=== PATIENT | female | born 1960 | race Caucasian/White ===

== ENCOUNTER 2024-01-26 18:41 | Emergency (ER) | payer BC ==
[~2024-01-26] VITALS: Ht 165.1 cm; Wt 64.0 kg
[2024-01-26 19:15] VITALS: BP 138/94; PULSE 83; RESP 18; TEMP 98.8; O2SAT 94
[2024-01-26 19:44] VITALS: BP 160/62; PULSE 82; RESP 18; TEMP 98.8; O2SAT 91
[2024-01-26] MEDS ORDERED: AUGMENTIN 875MG PO STA (19:44)
[2024-01-26] MEDS ORDERED: AUGMENTIN 875MG ONE (19:49)
[2024-01-26] MEDS ORDERED: BOOSTRIX IM ONE (19:50)
[2024-01-26] MEDS ORDERED: BACTRIM DS ONE (19:53)
[2024-01-26] MEDS: BOOSTRIX IM ONE (19:55)
[2024-01-26] MEDS: BACTRIM DS PO STA (19:55)
[2024-01-26] MEDS ORDERED: SULF1TAB24 PO (20:27)
[2024-01-26 20:34] VITALS: BP 147/63; PULSE 81; RESP 18; TEMP 98.8; O2SAT 93
== END 2024-01-26 20:35 | disposition home or self-care (01) ==
LOC: ER 18:41
DX: S00.05XA Superficial foreign body of scalp, initial encounter (principal); Z87.891 Personal history of nicotine dependence; Z90.49 Acquired absence of other specified parts of digestive tract; W45.8XXA Other foreign body or object entering through skin, initial encounter; Y93.89 Activity, other specified; Y92.89 Other specified places as the place of occurrence of the external cause; Y99.8 Other external cause status
CPT/HCPCS: 99284; 10120; 90471; 90715; J8499